=== PATIENT | male | born 1975 | race Two or more races ===

== ENCOUNTER 2018-01-13 07:57 | Emergency (ER) | payer SELFPAY ==
[2018-01-13] MEDS ORDERED: Maalox 30 mL Cup PO ONE (08:08)
[2018-01-13] MEDS ORDERED: Maalox 30 mL Cup ONE (08:11)
--- NOTE | 2018-01-13 08:27 | ED Physician Chart ---
ED Chief Complaint/HPI - Patient Information Date Seen:: 01/13/18 Time Seen:: 08:01 Chief Complaint:: chest pain History of Present Illness:: chest pain without radiation, nausea or vomiting. no family history or CAD. 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 has had diarrhea since Sunday. Allergies:: Allergies Allergy/AdvReac Type Severity Reaction Status Date / Time No Known Allergies Allergy Verified 01/13/18 08:01 Vitals:: Vital Signs - 8 hr 01/13/18 01/13/18 01/13/18 08:01 08:15 08:17 Temp 97.8 F HR 111 104 108 RR 18 20 20 BP 124/77 129/92 131/100 O2 Sat % 97 94 95 01/13/18 08:18 Temp HR 112 RR 20 BP 129/96 O2 Sat % 96 Historian:: Patient, Family Member Review:: Nurse's Note Reviewed ED Review of Systems - Review of Systems General/Constitutional: No fever, No chills, No weight loss, No weakness, No diaphoresis, No edema, No loss of appetite Skin: No skin lesions, No rash, No bruising Head: No headache, No light-headedness Eyes: No loss of vision, No pain, No diplopia ENT: No earache, No nasal drainage, No sore throat, No tinnitus Neck: No neck pain, No swelling, No thyromegaly, No stiffness, No mass noted Cardio Vascular: Chest pain Pulmonary: No SOB, No cough, No sputum, No wheezing GI: No nausea, No vomiting, No diarrhea, No pain, No melena, No hematochezia, No constipation, No hematemesis G/U: No dysuria, No frequency, No hematuria Musculoskeletal: No bone or joint pain, No back pain, No muscle pain Endocrine: No polyuria, No polydipsia Psychiatric: No prior psych history, No depression, No anxiety, No suicidal ideation Hematopoietic: No bruising, No lymphadenopathy Allergic/Immuno: No urticaria, No angioedema Neurological: No syncope, No focal symptoms, No weakness, No paresthesia, No headache, No seizure, No dizziness, No confusion, No vertigo ED Past Medical History - Past Medical History Obtainable: Yes Past Medical History: No significant medical hx Family History: None Family Medical History - Family Member Father Ethnicity: Living Status: Still Living Hx Family Coronary Artery Disease: Yes ED Physical Exam - Physical Examination General/Constitutional: Awake, Well-developed, well-nourished, Alert, No distress, GCS 15, Non-toxic appearing, Ambulatory Head: Atraumatic Eyes: Lids, conjuctiva normal, PERRL, EOMI Skin: Nl inspection, No rash, No skin lesions, No ecchymosis, Well hydrated, No lymphadenopathy Other Skin comments:: lichens nigrans ENMT: External ears, nose nl, Nasal exam nl, Lips, teeth, gums nl Neck: Nontender, Full ROM w/o pain, No JVD, No nuchal rigidity, No bruit, No mass, No stridor Respiratory: Nl effort/Exclusion, Clear to Auscultation, No Wheeze/Rhonchi/Rales Cardio Vascular: RRR, No murmur, gallop, rubs, NL S1 S2 GI: No tenderness/rebounding/guarding, No organomegaly, No hernia, Normal BS's, Nondistended, No mass/bruits, No McBurney tenderness : No CVA tenderness Extremities: No tenderness or effusion, Full ROM, normal strength in all extremities, No edema, Normal digits & nails Other Extremities comments:: no calf tenderness. Negative Ramy's. Neuro/Psych: Alert/oriented, Normal sensory exam, Normal motor strength, Judgement/insight normal, Mood normal, Normal gait, No focal deficits Misc: Normal back, No paraspinal tenderness Other Misc comments:: no chest tenderness to palpation. ED Assessment - Assessment General Assessment: EKG FROM 8:02:48 a.m.: sinus tachycardia, nonspecific ST T wave changes with a change in axis. CXR: NAD. Assessment/Comments:: patient felt better after receiving the Maalox. ED Septic Shock - . Is Septic Shock (SBP<90, OR Lactate>4 mmol\L) present?: No - <6hrs of presentation: Vital Signs: Vital Signs - 8 hr 01/13/18 01/13/18 01/13/18 08:01 08:15 08:17 Temp 97.8 F HR 111 104 108 RR 18 20 20 BP 124/77 129/92 131/100 O2 Sat % 97 94 95 01/13/18 08:18 Temp HR 112 RR 20 BP 129/96 O2 Sat % 96 ED Reassessment (Disposition) - Reassessment Reassessment Condition:: Improved - Diagnosis Diagnosis:: Atypical Chest pain. GERD Infectious diarrhea from presumed food poisoning. - Aftercare/Follow up Instructions Aftercare/Follow-Up Instructions:: Refer to Discharge Instructions Notes:: dietary restrictions reviewed with patient regarding prevention of GERD. Dietary restrictions given for foods to avoid to avoid diarrhea. patient informed that he should consider himself infectious to others and that he and his and others should use different wash cloths, soap and towels. if the diarrhea doesn't get better, he should follow up with his primary care physician. Medication Prescribed:: Bactrim DS 1 po bid # 20 - Patient Disposition Discharge/Transfer:: Home Condition at Disposition:: Stable, Improved
[2018-01-13 08:33] LABS: % BASOPHILS 0.7 % (0.0-2.0); % EOSINOPHILS 1.1 % (0.0-5.0); % LYMPHOCYTES 23.3 % (20.0-50.0); % MONOCYTES 8.6 % (2.0-10.0); % NEUTROPHILS 66.3 % (40.0-80.0); BASOPHILE ABSOLUTE 0.1 Th/cumm (0-0.2); EOSINOPHILE ABSOLUTE 0.1 Th/cmm (0.1-0.4); HEMATOCRIT 47.9 % (41.0-60); HEMOGLOBIN 16.3 gm/dL (12-16); LYMPHOCYTE ABSOLUTE 2.1 Th/cmm (1.5-3.0); MEAN CELL VOLUME 83.7 fl (80-99); MEAN CORPUSCULAR HEMOGLOBIN 28.4 pg (26.0-30.0); MEAN CORPUSCULAR HGB CONC 33.9 pg (28.0-36.0); MEAN PLATELET VOLUME 7.9 fl; MONOCYTE ABSOLUTE 0.8 Th/cmm (0.3-1.0); NEUTROPHILE ABSOLUTE 5.8 Th/cmm (1.8-8.0); PLATELET COUNT 234 Th/cmm (150-400); RED BLOOD COUNT 5.73 Mil/cmm (4.30-5.70); RED CELL DISTRIBUTION WIDTH 13.1 % (11.5-20.0); WHITE BLOOD COUNT 8.9 Th/cmm (4.8-10.8)
[2018-01-13 08:44] LABS: INR 1.24 (0.5-1.4); PROTHROMBIN TIME (TEST) 12.8 SECONDS (9.5-11.5)
[2018-01-13 08:50] LABS: ALB/GLOB RATIO 1.3 (1.0-1.8); ALBUMIN 4.5 gm/dL (4.2-5.5); ALKALINE PHOSPHATASE 44 U/L (34-104); ANION GAP 12.4 (7.0-16.0); BILIRUBIN,TOTAL 0.8 mg/dL (0.3-1.0); BUN - UREA NITROGEN 11 mg/dL (7-25); CALCIUM SERUM 9.3 mg/dL (8.6-10.3); CARBON DIOXIDE 20.4 mEq/L (21.0-31.0); CHLORIDE 106 mEq/L (98-107); CREATININE - SERUM 0.8 mg/dL (0.7-1.3); GFR AFRICAN-AMERICAN > 60.0 ml/min (>90); GFR NON AFRICAN-AMERICAN > 60.0 ml/min; GLUCOSE 102 mg/dL (70-105); MAGNESIUM 2.3 mg/dL (1.9-2.7); PHOSPHOROUS 3.5 mg/dL (2.5-5.0); POTASSIUM SERUM 3.8 mEq/L (3.5-5.1); SGOT 21 U/L (13-39); SGPT/ALT 26 U/L (7-52); SODIUM SERUM 135 mEq/L (136-145)
[2018-01-13 08:56] LABS: DDIMER QUANT < 100 ng/mL (100-400)
[2018-01-13] MEDS ORDERED: Lactated Ringer 1,000 ML IV ONE (09:02)
--- NOTE | 2018-01-13 09:45 | Diagnostic Imaging Report ---
Portable chest x-ray History: Pain Allowing for portable technique the heart size is normal. No focal pulmonary parenchymal processes. No hilar or mediastinal abnormalities. Impression: No acute abnormalities.
== END 2018-01-13 11:50 | disposition home or self-care (01) ==
LOC: ER 07:57
DX: T62.91XA Toxic effect of unspecified noxious substance eaten as food, accidental (unintentional), initial encounter (principal); K21.9 Gastro-esophageal reflux disease without esophagitis; R11.2 Nausea with vomiting, unspecified; R07.89 Other chest pain; Y92.89 Other specified places as the place of occurrence of the external cause
CPT/HCPCS: 36415-UA; 71045-TC; 80053-TC; 82270-TC; 83735-TC; 84100-TC; 84484-TC; 85025-TC; 85379-TC; 85610-TC; 87046-90; 93005

== ENCOUNTER 2018-04-09 20:03 | Emergency (ER) | payer SELFPAY ==
--- NOTE | 2018-04-09 21:34 | ED Physician Chart ---
ED Chief Complaint/HPI - Patient Information Date Seen:: 04/09/18 Time Seen:: 21:30 Chief Complaint:: Asthma attack History of Present Illness:: 42 yo male with history of mild intermittent asthma, developed cough for 4 days and wheezing for 3 days with worsening SOB, chest pain and headache. Pt had chills but denied fever, nausea or vomiting. Allergies:: Allergies Allergy/AdvReac Type Severity Reaction Status Date / Time No Known Allergies Allergy Verified 01/13/18 08:01 Vitals:: Vital Signs - 8 hr 04/09/18 20:15 Temp 98.4 F HR 103 RR 21 BP 126/100 O2 Sat % 96 ED Review of Systems - Review of Systems General/Constitutional: No fever, Chills Skin: No rash Head: Headache Eyes: No pain ENT: Nasal drainage, Sore throat Neck: No neck pain Cardio Vascular: Chest pain Pulmonary: SOB GI: No nausea, No vomiting Musculoskeletal: No muscle pain Neurological: No focal symptoms, Headache ED Past Medical History - Past Medical History Past Medical History: Asthma/COPD Social History: Non Smoker, Alcohol, No Drug Use Surgical History: None Family Medical History - Family Member Father History Unknown: Yes Ethnicity: Living Status: Still Living Hx Family Coronary Artery Disease: Yes ED Physical Exam - Physical Examination General/Constitutional: Awake, Alert Head: Atraumatic Eyes: PERRL, EOMI Skin: No skin lesions ENMT: Nasal exam nl Neck: No nuchal rigidity Other Respiratory comments:: Mild wheezing Cardio Vascular: RRR, No murmur, gallop, rubs, NL S1 S2 GI: No tenderness/rebounding/guarding Extremities: normal strength in all extremities Neuro/Psych: No focal deficits ED Labs/Radiology/EKG Results - Lab Results Results: Laboratory Last Values WBC 8.0 Th/cmm (4.8-10.8) 04/09/18 21:45 RBC 5.53 Mil/cmm (4.30-5.70) 04/09/18 21:45 Hgb 15.7 gm/dL (12-16) 04/09/18 21:45 Hct 46.8 % (41.0-60) 04/09/18 21:45 MCV 84.6 fl (80-99) 04/09/18 21:45 MCH 28.3 pg (26.0-30.0) 04/09/18 21:45 MCHC Differential 33.5 pg (28.0-36.0) 04/09/18 21:45 RDW 12.4 % (11.5-20.0) 04/09/18 21:45 Plt Count 252 Th/cmm (150-400) 04/09/18 21:45 MPV 7.9 fl 04/09/18 21:45 Neutrophils % 54.4 % (40.0-80.0) 04/09/18 21:45 Lymphocytes % 32.5 % (20.0-50.0) 04/09/18 21:45 Monocytes % 9.3 % (2.0-10.0) 04/09/18 21:45 Eosinophils % 3.3 % (0.0-5.0) 04/09/18 21:45 Basophils % 0.5 % (0.0-2.0) 04/09/18 21:45 Sodium 139 mEq/L (136-145) 04/09/18 21:45 Potassium 3.9 mEq/L (3.5-5.1) 04/09/18 21:45 Chloride 104 mEq/L (98-107) 04/09/18 21:45 Carbon Dioxide 25.6 mEq/L (21.0-31.0) 04/09/18 21:45 Anion Gap 13.3 (7.0-16.0) 04/09/18 21:45 BUN 11 mg/dL (7-25) 04/09/18 21:45 Creatinine 1.0 mg/dL (0.7-1.3) 04/09/18 21:45 Est GFR ( Amer) > 60.0 ml/min (>90) 04/09/18 21:45 Est GFR (Non-Af Amer) > 60.0 ml/min 04/09/18 21:45 BUN/Creatinine Ratio 11.0 04/09/18 21:45 Glucose 95 mg/dL (70-105) 04/09/18 21:45 Calcium 9.4 mg/dL (8.6-10.3) 04/09/18 21:45 Total Bilirubin 0.4 mg/dL (0.3-1.0) 04/09/18 21:45 AST 33 U/L (13-39) 04/09/18 21:45 ALT 32 U/L (7-52) 04/09/18 21:45 Alkaline Phosphatase 48 U/L (34-104) 04/09/18 21:45 Total Protein 7.5 gm/dL (6.0-8.3) 04/09/18 21:45 Albumin 4.3 gm/dL (4.2-5.5) 04/09/18 21:45 Globulin 3.2 gm/dL 04/09/18 21:45 Albumin/Globulin Ratio 1.3 (1.0-1.8) 04/09/18 21:45 Influenza A (Rapid) NEG FOR INF A 04/09/18 21:45 Influenza B (Rapid) NEG FOR INF B 04/09/18 21:45 ED Assessment - Assessment General Assessment: Asthma exacerbation Upper respiratory infection Assessment/Comments:: CBC, CMP Influenza A&B swab DuoNeb Tylenol ED Septic Shock - . Is Septic Shock (SBP<90, OR Lactate>4 mmol\L) present?: No - <6hrs of presentation: Vital Signs: Vital Signs - 8 hr 04/09/18 20:15 Temp 98.4 F HR 103 RR 21 BP 126/100 O2 Sat % 96 ED Reassessment (Disposition) - Reassessment Reassessment Condition:: Improved - Patient Disposition Discharge/Transfer:: Home
[2018-04-09] MEDS ORDERED: Albuterol/Ipratropium Neb 3 ML AERS HHN ONE (21:47)
[2018-04-09] MEDS: Albuterol/Ipratropium Neb 3 ML AERS HHN ONE (21:51)
[2018-04-09 22:01] LABS: % BASOPHILS 0.5 % (0.0-2.0); % EOSINOPHILS 3.3 % (0.0-5.0); % LYMPHOCYTES 32.5 % (20.0-50.0); % MONOCYTES 9.3 % (2.0-10.0); % NEUTROPHILS 54.4 % (40.0-80.0); EOSINOPHILE ABSOLUTE 0.3 Th/cmm (0.1-0.4); HEMATOCRIT 46.8 % (41.0-60); HEMOGLOBIN 15.7 gm/dL (12-16); LYMPHOCYTE ABSOLUTE 2.6 Th/cmm (1.5-3.0); MEAN CELL VOLUME 84.6 fl (80-99); MEAN CORPUSCULAR HEMOGLOBIN 28.3 pg (26.0-30.0); MEAN CORPUSCULAR HGB CONC 33.5 pg (28.0-36.0); MEAN PLATELET VOLUME 7.9 fl; MONOCYTE ABSOLUTE 0.7 Th/cmm (0.3-1.0); NEUTROPHILE ABSOLUTE 4.4 Th/cmm (1.8-8.0); PLATELET COUNT 252 Th/cmm (150-400); RED BLOOD COUNT 5.53 Mil/cmm (4.30-5.70); RED CELL DISTRIBUTION WIDTH 12.4 % (11.5-20.0)
[2018-04-09 22:35] LABS: ALB/GLOB RATIO 1.3 (1.0-1.8); ALBUMIN 4.3 gm/dL (4.2-5.5); ALKALINE PHOSPHATASE 48 U/L (34-104); ANION GAP 13.3 (7.0-16.0); BILIRUBIN,TOTAL 0.4 mg/dL (0.3-1.0); BUN - UREA NITROGEN 11 mg/dL (7-25); CALCIUM SERUM 9.4 mg/dL (8.6-10.3); CARBON DIOXIDE 25.6 mEq/L (21.0-31.0); CHLORIDE 104 mEq/L (98-107); GFR AFRICAN-AMERICAN > 60.0 ml/min (>90); GFR NON AFRICAN-AMERICAN > 60.0 ml/min; GLUCOSE 95 mg/dL (70-105); POTASSIUM SERUM 3.9 mEq/L (3.5-5.1); SGOT 33 U/L (13-39); SGPT/ALT 32 U/L (7-52); SODIUM SERUM 139 mEq/L (136-145); TOTAL PROTEIN,SERUM 7.5 gm/dL (6.0-8.3)
[2018-04-09 22:46] LABS: INF A SCREEN NEG FOR INF A
[2018-04-09 22:47] LABS: INF B SCREEN NEG FOR INF B
== END 2018-04-09 23:25 | disposition home or self-care (01) ==
LOC: ER 20:03
DX: J45.901 Unspecified asthma with (acute) exacerbation (principal); J06.9 Acute upper respiratory infection, unspecified
CPT/HCPCS: 36415-UA; 80053-TC; 85025-TC; 87804-TC; 94640; Z7502; Z7610